=== PATIENT | female | born 1960 | race Caucasian/White ===

== ENCOUNTER 2019-03-18 11:37 | Day surgery (SDC) | payer OTHER ==
[2019-03-18] MEDS ORDERED: Ringers Lactate 1,000 ML IV ONE (12:07)
[2019-03-18] MEDS ORDERED: ONDANSETRON 4 MG/2 ML VIAL ONE (12:40)
[2019-03-18] MEDS ORDERED: propofoL 200 MG/20 ML VIAL IV ONE ×2 (13:22)
[2019-03-18] MEDS ORDERED: LIDOCAINE 1% MPF 5 ML VIAL ONE (13:22)
[2019-03-18] MEDS ORDERED: PROMETHAZINE INJ 25 MG/ML AMP IV ONE (13:50)
[2019-03-18] MEDS ORDERED: PROMETHAZINE INJ 25 MG/ML AMP ONE (13:52)
[2019-03-18 14:02] VITALS: TEMP 97.6
[2019-03-18 14:23] VITALS: BP 134/77; O2SAT 94
--- NOTE | 2019-03-22 18:33 | OP ---
Surgeon: Neil Owen MD Procedure Performed: Esophagogastroduodenoscopy. Indication For Procedure: Nausea, abdominal pain, dysphagia, change in bowels. Plan For Anesthesia: Monitored anesthesia care. Complexity: Average. Technique: After obtaining informed consent from the patient explaining risks and complications whic h include, but are not limited to bleeding, infection, perforation, anesthesia complication, patient was placed in left lateral position. Sedation was given. From then on the scope was advanced to the mouth and carefully guided up till the fourth portion of the duodenum. After the completion of exam ination, scope and equipment were withdrawn and procedure terminated in a safe manner. Findings: Esophagus: No gross lesion seen in the upper and mid esophagus and distal esophagus. A s mall hiatal hernia was seen. The Z-line was irregular. Biopsies taken. Stomach: Mild patchy erythema seen in the body and antrum. Biopsies taken. Also seen was a small p olyp in the body appeared to be benign and fundic gland in nature. Biopsies were taken. Duodenum: The bulb appeared normal. However, in the second portion of the duodenum, few areas of er osions. Areas of erosive mucosa were seen. The scope was advanced further and small bowel biopsies were taken. Complications: None. Tolerance To Anesthesia: Excellent. Postoperative Diagnoses: Duodenitis, gastritis, hiatal hernia, gastric polyp. Plan: 1.Await pathology results. 2.Follow up in the GI clinic in 2 weeks. 3.Start oral PPI once a day. 4.Avoid NSAIDs. US/MODL Voice ID: [id number] Report ID: [id number]
== END 2019-03-18 14:24 | disposition home or self-care (01) ==
LOC: OR 11:37
PROVIDERS: ATTEND Internal Medicine Gastroenterology
PROC: 0DB88ZX Excision of Small Intestine, Via Natural or Artificial Opening Endoscopic, Diagnostic (ICD-10-PCS; 2019-03-18)
PROC: 0DB68ZX Excision of Stomach, Via Natural or Artificial Opening Endoscopic, Diagnostic (ICD-10-PCS; 2019-03-18)
PROC: 0DB58ZX Excision of Esophagus, Via Natural or Artificial Opening Endoscopic, Diagnostic (ICD-10-PCS; principal; 2019-03-18 13:15)
DX: K21.0 Gastro-esophageal reflux disease with esophagitis (principal); K29.50 Unspecified chronic gastritis without bleeding; K31.7 Polyp of stomach and duodenum; K29.80 Duodenitis without bleeding; K52.89 Other specified noninfective gastroenteritis and colitis; K44.9 Diaphragmatic hernia without obstruction or gangrene; G47.33 Obstructive sleep apnea (adult) (pediatric); I10 Essential (primary) hypertension; Z88.2 Allergy status to sulfonamides; Z88.3 Allergy status to other anti-infective agents; Z88.8 Allergy status to other drugs, medicaments and biological substances; Z80.0 Family history of malignant neoplasm of digestive organs
CPT/HCPCS: 88312; 88305; 43239; J2704 ×2; J2550 ×2; J7120; J2405

== ENCOUNTER 2020-09-04 23:48 | Emergency (ER) | payer OTHER ==
[2020-09-05 00:40] LABS: Absolute Lymphocytes (CBC) 2.3 K/uL (0.7-4.9); Basophils % 0.7 % (0-1.3); Hematocrit 42.2 % (36.0-45.0); Lymphocytes % 33.8 % (15.3-44.8); MPV 8.5 fL (7.6-11.3); RBC Red Blood Cell Count 5.06 M/uL (3.86-4.86)
[2020-09-05 00:53] LABS: ALT/SGPT 22 U/L (12-78); AST/SGOT 10 U/L (15-37); Albumin 3.6 g/dL (3.4-5.0); Alkaline Phosphatase 73 U/L (45-117); BUN Blood Urea Nitrogen 11 mg/dL (7-18); Bicarbonate 31 mmol/L (21-32); Bilirubin Direct < 0.1 mg/dL (0-0.2); Bilirubin Total 0.4 mg/dL (0.2-1.0); Glucose Level 99 mg/dL (74-106); Lipase 60 U/L (73-393); Potassium 3.4 mmol/L (3.5-5.1); Protein, Total 7.6 g/dL (6.4-8.2); Sodium Level 141 mmol/L (136-145)
[2020-09-05] MEDS ORDERED: ONDANSETRON 4 MG/2 ML VIAL ONE (01:51)
[2020-09-05] MEDS ORDERED: MORPHINE 4 MG/ML SYR ONE (01:51)
[2020-09-05] MEDS ORDERED: FAMOTIDINE 20 MG/2 ML VIAL IV ONE (01:52)
[2020-09-05] MEDS ORDERED: NA CHLORIDE 0.9% 1,000 ML ONE (01:52)
--- NOTE | 2020-09-05 04:34 | ER ---
Nurse's Notes [facility] Name: Caterina Montenegro Age: 59 yrs Sex: Female : 1960 Arrival Date: 09/04/2020 Time: 23:52 Bed 7 Private MD: Maegan Garcias K Diagnosis: Gastroenteritis Presentation: 09/05 00:05 Chief complaint: Patient states: epigastric pain, N/V/D for 2 days, denies fever. em Coronavirus screen: Client denies travel out of the [place] in the last 14 days. Ebola Screen: Patient negative for fever greater than or equal to 101.5 degrees Fahrenheit, and additional compatible Ebola Virus Disease symptoms Patient denies exposure to infectious person. Patient denies travel to an Ebola-affected area in the 21 days before illness onset. No symptoms or risks identified at this time. Initial Sepsis Screen: Does the patient meet any 2 criteria? No. Patient's initial sepsis screen is negative. Does the patient have a suspected source of infection? No. Patient's initial sepsis screen is negative. Risk Assessment: Do you want to hurt yourself or someone else? Patient reports no desire to harm self or others. Onset of symptoms was September 05, 2020. 00:05 Method Of Arrival: Ambulatory em 00:05 Acuity: LARA 3 em Triage Assessment: 01:05 General: Appears in no apparent distress. Behavior is calm, cooperative. Pain: ak2 Complains of pain in chest. GI: Reports epigastric pain. Historical: - Allergies: 00:06 Cipro PO; em 00:06 FLAGYL PO; em 00:06 Sulfa (Sulfonamide Antibiotics); em 00:06 Valium; em - Home Meds: 01:05 Cris 180 mg Oral tab 1 tab once daily [Active]; amlodipine 10 mg tab 1 tab once ak2 daily [Active]; lisinopril-hydrochlorothiazide 20-12.5 mg Oral tab 1 tab once daily [Active]; potassium chloride 10 mEq Oral cpER 1 cap once daily [Active]; Pristiq 50 mg Oral Tb24 1 tab once daily [Active]; Protonix 40 mg Oral grps 1 packet once daily [Active]; Trazodone Oral [Active]; Zofran (as hydrochloride) 4 mg Oral tab as needed [Active]; - PMHx: 00:06 allergies; stomach issues; Hypertension; Depression; Arthritis; em - PSHx: 00:06 left arm; em - Immunization history:: Adult Immunizations up to date. - Social history:: Smoking status: Patient denies any tobacco usage or history of. Screenin:04 Abuse screen: Denies threats or abuse. Denies injuries from another. Nutritional ak2 screening: No deficits noted. Tuberculosis screening: No symptoms or risk factors identified. Fall Risk None identified. Assessment: 01:05 GI: Abdomen is non-distended. ak2 01:07 General: Appears in no apparent distress. comfortable, Behavior is calm. Pain: rr5 Complains of pain in epigastric area Pain currently is 3 out of 10 on a pain scale. Quality of pain is described as burning, sharp. Neuro: Level of Consciousness is awake, alert, obeys commands, Oriented to person, place, time. Cardiovascular: Capillary refill < 3 seconds Patient's skin is warm and dry. Respiratory: Airway is patent Respiratory effort is even, unlabored, Respiratory pattern is regular, symmetrical. GI: Abdomen is non-distended, Reports upper abdominal pain, cramping, diarrhea, nausea, vomiting. : No signs and/or symptoms were reported regarding the genitourinary system. EENT: No signs and/or symptoms were reported regarding the EENT system. Derm: Skin is intact, is healthy with good turgor, Skin temperature is warm. Musculoskeletal: Capillary refill < 3 seconds. 02:15 Reassessment: Patient appears in no apparent distress at this time. Patient is alert, rr5 oriented x 3, equal unlabored respirations, skin warm/dry/pink. came back from [facility]. 02:59 Reassessment: Patient appears in no apparent distress at this time. awaiting for CT rr5 result Patient states symptoms have improved. 03:08 Reassessment: Patient and/or family updated on plan of care and expected duration. Pain ak2 level reassessed. 04:00 Reassessment: Patient appears in no apparent distress at this time. Patient is alert, rr5 oriented x 3, equal unlabored respirations, skin warm/dry/pink. 04:54 Reassessment: Patient appears in no apparent distress at this time. Patient is alert, rr5 oriented x 3, equal unlabored respirations, skin warm/dry/pink. discharge instruction given and explained without complaints made Patient states feeling better. Patient states symptoms have improved. Vital Signs: 00:05 BP 174 / 95; Pulse 71; Resp 18; Temp 97.8; Pulse Ox 99% on R/A; Weight 119.29 kg; em Height 5 ft. 1 in. (154.94 cm); Pain 9/10; 02:00 BP 163 / 85; Pulse 70; Resp 17; Pulse Ox 98% ; rr5 02:59 BP 144 / 82; Pulse 58; Resp 19; Pulse Ox 98% ; Pain 2/10; rr5 04:00 BP 154 / 79; Pulse 59; Resp 16; Pulse Ox 99% ; rr5 04:55 BP 149 / 95; Pulse 60; Resp 15; Pulse Ox 98% ; rr5 00:05 Body Mass Index 49.69 (119.29 kg, 154.94 cm) em ED Course: 09/04 23:52 Patient arrived in ED. es 23:53 Maegan Garcias MD is Private Physician. es 07 00:06 Triage completed. em 00:06 Arm band placed on. em 00:21 Shaun Ovalles MD is Attending Physician. mh7 00:25 Colt Loera RN is Primary Nurse. rr5 00:29 Inserted saline lock: 20 gauge in left antecubital area, using aseptic technique. Blood rr5 collected. 01:04 No apparent distress. ak2 01:04 Patient has correct armband on for positive identification. ak2 01:04 No provider procedures requiring assistance completed. ak2 02:23 CT Abd/Pelvis - IV Contrast Only In Process Unspecified. EDMS 04:32 Neil Owen MD is Referral Physician. mh7 04:55 IV discontinued, intact, bleeding controlled, No redness/swelling at site. Pressure rr5 dressing applied. Administered Medications: 01:30 Drug: Pepcid (famotidine) 20 mg Route: IVP; Site: left antecubital; rr5 02:59 Follow up: Response: No adverse reaction rr5 01:30 Drug: NS 0.9% 1000 ml Route: IV; Rate: 1000 ml; Site: left antecubital; rr5 02:40 Follow up: Response: No adverse reaction; IV Status: Completed infusion; IV Intake: rr5 1000ml 01:32 Drug: Zofran (Ondansetron) 4 mg Route: IVP; Site: left antecubital; rr5 02:59 Follow up: Response: No adverse reaction rr5 01:35 Drug: morphine 4 mg {Note: rass 0.} Route: IVP; Site: left antecubital; rr5 03:00 Follow up: Response: No adverse reaction; Pain is decreased; RASS: Alert and Calm (0) rr5 Intake: 02:40 IV: 1000ml; Total: 1000ml. rr5 Outcome: 04:33 Discharge ordered by . [facility] 04:55 Discharged to home ambulatory. rr5 04:55 Condition: stable 04:55 Discharge instructions given to patient, Instructed on discharge instructions, follow up and referral plans. medication usage, Demonstrated understanding of instructions, follow-up care, wound care, Prescriptions given X 3. 04:56 Patient left the ED. rr5 Signatures: Dispatcher [employer] Elise Rodriguez Edgar, RN RN em Roque, Raymond, RN RN rr5 Shaun Ovalles MD MD [facility] Herminio Elder2
--- NOTE | 2020-09-05 04:34 | EDPHYS ---
Physician Documentation [facility] Name: Caterina Montenegro Age: 59 yrs Sex: Female : 1960 Arrival Date: 09/04/2020 Time: 23:52 Bed 7 Private MD: Maegan Garcias K ED Physician Shaun Ovalles HPI: 09/05 03:17 This 59 yrs old Female presents to ER via Ambulatory with complaints of mh7 Nausea/Vomiting/Diarrhea, Abdominal Pain. 03:17 The patient presents to the emergency department with nausea, that is moderate, mh7 vomiting, that is intermittent, described as clear fluid, abdominal pain, of the epigastric area, described as intermittent, vague,\E\ waxing and waning, and does not radiate. Onset: The symptoms/episode began/occurred 2 day(s) ago. Possible causes: unknown. The symptoms are aggravated by food , The symptoms are alleviated by nothing. Associated signs and symptoms: Pertinent negatives: anorexia, belching, constipation, diarrhea, dysuria, fever, flatulence, GI bleeding, hematuria, vaginal discharge. Severity of symptoms: At their worst the symptoms were moderate last night, in the emergency department the symptoms are unchanged. Historical: - Allergies: 00:06 Cipro PO; em 00:06 FLAGYL PO; em 00:06 Sulfa (Sulfonamide Antibiotics); em 00:06 Valium; em - Home Meds: 01:05 Cris 180 mg Oral tab 1 tab once daily [Active]; amlodipine 10 mg tab 1 tab once ak2 daily [Active]; lisinopril-hydrochlorothiazide 20-12.5 mg Oral tab 1 tab once daily [Active]; potassium chloride 10 mEq Oral cpER 1 cap once daily [Active]; Pristiq 50 mg Oral Tb24 1 tab once daily [Active]; Protonix 40 mg Oral grps 1 packet once daily [Active]; Trazodone Oral [Active]; Zofran (as hydrochloride) 4 mg Oral tab as needed [Active]; - PMHx: 00:06 allergies; stomach issues; Hypertension; Depression; Arthritis; em - PSHx: 00:06 left arm; em - Immunization history:: Adult Immunizations up to date. - Social history:: Smoking status: Patient denies any tobacco usage or history of. ROS: 03:17 Constitutional: Negative for fever, chills, and weight loss, Eyes: Negative for injury, mh7 pain, redness, and discharge, ENT: Negative for injury, pain, and discharge, Neck: Negative for injury, pain, and swelling, Cardiovascular: Negative for chest pain, palpitations, and edema, Respiratory: Negative for shortness of breath, cough, wheezing, and pleuritic chest pain, Back: Negative for injury and pain, : Negative for injury, bleeding, discharge, and swelling, MS/Extremity: Negative for injury and deformity, Skin: Negative for injury, rash, and discoloration, Neuro: Negative for headache, weakness, numbness, tingling, and seizure, Psych: Negative for depression, anxiety, suicide ideation, homicidal ideation, and hallucinations, Allergy/Immunology: Negative for hives, rash, and allergies, Endocrine: Negative for neck swelling, polydipsia, polyuria, polyphagia, and marked weight changes, Hematologic/Lymphatic: Negative for swollen nodes, abnormal bleeding, and unusual bruising. Exam: 03:17 Constitutional: This is a well developed, well nourished patient who is awake, alert, mh7 and in no acute distress. Head/Face: Normocephalic, atraumatic. Eyes: Pupils equal round and reactive to light, extra-ocular motions intact. Lids and lashes normal. Conjunctiva and sclera are non-icteric and not injected. Cornea within normal limits. Periorbital areas with no swelling, redness, or edema. Neck: Trachea midline, no thyromegaly or masses palpated, and no cervical lymphadenopathy. Supple, full range of motion without nuchal rigidity, or vertebral point tenderness. No Meningismus. Chest/axilla: Normal chest wall appearance and motion. Nontender with no deformity. No lesions are appreciated. Cardiovascular: Regular rate and rhythm with a normal S1 and S2. No gallops, murmurs, or rubs. Normal PMI, no JVD. No pulse deficits. Respiratory: Lungs have equal breath sounds bilaterally, clear to auscultation and percussion. No rales, rhonchi or wheezes noted. No increased work of breathing, no retractions or nasal flaring. 03:17 Back: No spinal tenderness. No costovertebral tenderness. Full range of motion. Skin: Warm, dry with normal turgor. Normal color with no rashes, no lesions, and no evidence of cellulitis. MS/ Extremity: Pulses equal, no cyanosis. Neurovascular intact. Full, normal range of motion. Neuro: Awake and alert, GCS 15, oriented to person, place, time, and situation. Cranial nerves II-XII grossly intact. Motor strength 5/5 in all extremities. Sensory grossly intact. Cerebellar exam normal. Normal gait. Psych: Awake, alert, with orientation to person, place and time. Behavior, mood, and affect are within normal limits. 03:17 Abdomen/GI: Inspection: abdomen appears normal, Bowel sounds: normal, in all quadrants, Palpation: moderate abdominal tenderness, in the epigastric area, mass, is not appreciated, rebound tenderness, is not appreciated, voluntary guarding, is not appreciated, involuntary guarding, is not appreciated, no appreciated organomegaly, Rectal exam: the exam is deferred, because of patient request, Indicators: McBurney's point is not tender, Willis's sign is negative, Rovsing's sign is negative, Obturator sign is negative, Psoas sign is negative, Liver: no appreciated palpable abnormalities, Hernia: not appreciated. Vital Signs: 00:05 BP 174 / 95; Pulse 71; Resp 18; Temp 97.8; Pulse Ox 99% on R/A; Weight 119.29 kg; em Height 5 ft. 1 in. (154.94 cm); Pain 9/10; 02:00 BP 163 / 85; Pulse 70; Resp 17; Pulse Ox 98% ; rr5 02:59 BP 144 / 82; Pulse 58; Resp 19; Pulse Ox 98% ; Pain 2/10; rr5 04:00 BP 154 / 79; Pulse 59; Resp 16; Pulse Ox 99% ; rr5 04:55 BP 149 / 95; Pulse 60; Resp 15; Pulse Ox 98% ; rr5 00:05 Body Mass Index 49.69 (119.29 kg, 154.94 cm) em MDM: 04:31 Differential diagnosis: Nonspecific abd pain, gastritis, cholecystitis, pancreatitis, mh7 diverticulitis, viral gastroenteritis, gastroenteritis. Data reviewed: vital signs, nurses notes, lab test result(s), CBC, electrolytes, urinalysis, radiologic studies, CT scan. Counseling: I had a detailed discussion with the patient and/or guardian regarding: the historical points, exam findings, and any diagnostic results supporting the discharge/admit diagnosis, lab results, radiology results, the need for outpatient follow up, to return to the emergency department if symptoms worsen or persist or if there are any questions or concerns that arise at home. Response to treatment: the patient's symptoms have resolved after treatment, the patient's blood pressure is in an acceptable range, mental status has returned to baseline, the patient no longer shows bradycardia, the patient is not short of breath, the patient is not tachycardic, the patient's pain is gone, the patient's temperature has normalized. 04:33 Patient medically screened. [facility] 09/05 00:25 Order name: Basic Metabolic Panel; Complete Time: 01:24 09/05 00:25 Order name: CBC with Diff; Complete Time: :24 09/05 00:25 Order name: Hepatic Function; Complete Time: 01:24 [facility] 09/05 00:25 Order name: Lipase; Complete Time: 01:24 [facility] 09/05 01:29 Order name: CT Abd/Pelvis - IV Contrast Only [facility] 09/05 00:25 Order name: IV Saline Lock; Complete Time: 00:25 [facility] 09/05 00:25 Order name: Labs collected and sent; Complete Time: 00:26 [facility] 09/05 01:36 Order name: EKG; Complete Time: 01:37 rr5 Administered Medications: 01:30 Drug: Pepcid (famotidine) 20 mg Route: IVP; Site: left antecubital; rr5 02:59 Follow up: Response: No adverse reaction rr5 01:30 Drug: NS 0.9% 1000 ml Route: IV; Rate: 1000 ml; Site: left antecubital; rr5 02:40 Follow up: Response: No adverse reaction; IV Status: Completed infusion; IV Intake: rr5 1000ml 01:32 Drug: Zofran (Ondansetron) 4 mg Route: IVP; Site: left antecubital; rr5 02:59 Follow up: Response: No adverse reaction rr5 01:35 Drug: morphine 4 mg {Note: rass 0.} Route: IVP; Site: left antecubital; rr5 03:00 Follow up: Response: No adverse reaction; Pain is decreased; RASS: Alert and Calm (0) rr5 Disposition Summary: 09/05/20 04:33 Discharge Ordered Location: Home [facility] Problem: new [facility] Symptoms: have improved [facility] Condition: Stable [facility] Diagnosis - Gastroenteritis [facility] Followup: [facility] - With: Private Physician - When: 1 - 2 days - Reason: Worsening of condition, Recheck today's complaints, Continuance of care, Re-evaluation by your physician Followup: [facility] - With: Neil Owen MD - When: 1 - 2 days - Reason: Worsening of condition, Recheck today's complaints, Continuance of care, Re-evaluation by your physician Discharge Instructions: - Discharge Summary Sheet [facility] - Viral Gastroenteritis, Adult, [id number] [facility] Forms: - Work release form 5 - Medication Reconciliation Form [facility] - Thank You Letter [facility] - Antibiotic Education [facility] - Prescription Opioid Use [facility] Prescriptions: - dicyclomine 20 mg Oral tablet - take 1 tablet by ORAL route 4 times per day As needed; 20 tablet; Refills: 0, [facility] Product Selection Permitted - ondansetron 4 mg Oral tablet,disintegrating - place 1 tablet by TRANSLINGUAL route every 8 hours As needed; 10 tablet; [facility] Refills: 0, Product Selection Permitted - Augmentin 875-125 mg Oral Tablet - take 1 tablet by ORAL route every 12 hours for 10 days; 20 tablet; Refills: 0, [facility] Product Selection Permitted Signatures: Dispatcher [employer] Bharat Trejo, RN RN Colt Andrade RN RN rr5 Shaun Ovalles MD MD 7 Herminio Elder2
[2020-09-05 05:07] VITALS: TEMP 97.8
[2020-09-05 05:12] VITALS: BP 149/95; O2SAT 98
--- NOTE | 2020-09-05 22:32 | RAD REPORT ---
EXAM DESCRIPTION: CT - Abdomen Pelvis W Contrast - 09/05/2020 9:40 am COMPARISON: None. CLINICAL HISTORY: Abd pain;Nausea / vomiting TECHNIQUE: CT of the abdomen and pelvis was acquired with IV contrast material. Coronal and sagitt al reconstructions were obtained. Automated exposure control was utilized on this examination as a dose lowering technique. FINDINGS: Lung bases: Clear. Liver: Normal. Gallbladder and biliary: Normal gallbladder. Unremarkable biliary tree. Pancreas: Normal. Spleen: Normal. Adrenal glands: 1.9 cm left adrenal adenoma. Normal right adrenal gland. Kidneys: Small right renal cyst. Normal left kidney. Stomach and Small Bowel: Normal stomach. There are several loops of mildly dilated small bowel in the lower abdomen with air-fluid levels. There is thickening of the wall of the ileum. Urinary bladder: Normal. Uterus and Adnexa: Normal. Colon and Appendix: The colon is unremarkable. No evidence of appendicitis. Retroperitoneum and lymph nodes: Normal. Vascular: Normal. Peritoneal cavity: Trace pelvic fluid is noted. Musculoskeletal and soft tissues: Soft tissues are unremarkable. No aggressive bone lesions. No com pression fracture. IMPRESSION: Ileal wall thickening with adjacent fat stranding and mild ileus of the preceding bowel is suggestive of infectious or inflammatory enteritis. This pattern is common with Crohn's disease. Electronically signed by: Estuardo Steen MD 09/05/2020 3:10 AM CDT Due to temporary technical issues with the PACS/Fluency reporting system, reports are being signed by the in house radiologists without review as a courtesy to insure prompt reporting. The interpreting radiologist is fully responsible for the content of the report.
--- NOTE | 2020-09-07 16:11 | EKG ---
Test Date: 2020-09-05 Test Time: 01:52:39 Pet Sitting: RONDA MEASUREMENT RESULTS: Intervals: Rate: 51 OH: 174 QRSD: 108 QT: 446 QTc: 411 [place]: P: 65 OH: 174 QRS: 15 T: 37 INTERPRETIVE STATEMENTS: Sinus bradycardia with sinus arrhythmia Incomplete right bundle branch block Borderline ECG Compared to ECG 02/06/2013 19:32:39 Incomplete right bundle-branch block now present Sinus rhythm no longer present Myocardial infarct finding no longer present Electronically Signed On 09-07-20 16:05:24 CDT by Kris Dasilva
== END 2020-09-05 04:56 | disposition home or self-care (01) ==
LOC: ER 23:48
DX: K52.9 Noninfective gastroenteritis and colitis, unspecified (principal); I10 Essential (primary) hypertension; Z88.1 Allergy status to other antibiotic agents; Z88.2 Allergy status to sulfonamides; Z88.5 Allergy status to narcotic agent; Z88.8 Allergy status to other drugs, medicaments and biological substances
CPT/HCPCS: 96361; 93005; 85025; 80048; 36415; 80076; 83690; 74177; 96375; 96374; 99284; Q9967; J7030; J2405